=== PATIENT | male | born 1985 | race African-American/Black ===

== ENCOUNTER 2016-09-17 16:24 | Emergency (ER) ==
[2016-09-17 16:36] VITALS: BP 144/97; TEMP 96.8; BMI 41.1
[2016-09-17] MEDS ORDERED: BOOSTRIX IM ONE (16:38)
--- NOTE | 2016-09-17 17:01 | DI ---
EXAM: Right foot three views HISTORY: Soft tissue nail puncture. FINDINGS / IMPRESSION: Area of interest was marked on the cutaneous surface with a BB. No soft ti ssue radiopaque foreign body or gas collection identified. Bone and joint structures appear normal.
[2016-09-17] MEDS ORDERED: LIDOCAINE 1 % AMP 5 ML (SUTURES) SUBCUT STA (17:08)
--- NOTE | 2016-09-17 17:14 | ED.PDOC ---
General ED Provider: Dr. TARA FREY JR Chief Complaint: Puncture Wound Stated Complaint: building a toybox inside stepped on board with [place] nail; puncture plantar to third mtp Time Seen by Physician: 16:45 Mode of Arrival: Walk-In Information Source: Patient Exam Limitations: No limitations [facility] Nursing and Triage Documentation Reviewed and Agree: No Review of Systems - Review Of Systems Constitutional: Reports: No symptoms Eyes: Reports: No symptoms Ears, Nose, Mouth, Throat: Reports: No symptoms Respiratory: Reports: No symptoms Cardiac: Reports: No symptoms GI: Reports: No symptoms : Reports: No symptoms Musculoskeletal: Reports: No symptoms Skin: Reports: No symptoms All Other Systems: Other Past Medical History - Past Medical History Previously Healthy: Yes Endocrine: Reports: None Cardiovascular: Reports: None Respiratory: Reports: None Hematological: Reports: None Gastrointestinal: Reports: None Genitourinary: Reports: None Neuro/Psych: Reports: None Musculoskeletal: Reports: None Cancer: Reports: None - Surgical History General Surgical History: Reports: Unknown - Family History Family History: Reports: Unknown - Social History Smoking Status: Never smoker Hx Substance Use: No Alcohol Screening: None Physical Exam - Physical Exam Appearance: Well-appearing Pain Distress: Mild Neck: Supple Respiratory: Airway patent Skin: Warm, Dry, Normal color (note lesion) Procedures - Laceration/Wound Repair No standard instances Wound Description: Flap Wound Length (cm): .2 Wound Width: .3 Wound Depth: .5 Wound Explored: Clean Wound Prep: Hibiclens Anesthesia: Lidocaine Wound Debrided: Minimal Undermining: Minimal Wound Margins: Revised Suture Size and Type: none Critical Care Note - Critical Care Note Total Time (mins): 0 Course - Course Orders, Labs, Meds: Orders Category Date Time Status Diphth,Pertuss(Acell),Tet Vac [Boostrix] MEDS 09/17/16 16:38 Discontinued 0.5 ml IM .ONCE ONE Lidocaine HCl/Pf [Lidocaine 1 % Amp 5 ml (Sutures)] MEDS 09/17/16 17:08 Discontinued 5 ml SUBCUT ONCE STA FOOT, RIGHT 3 VIEWS Stat RADS 09/17/16 16:40 Completed Medications Discontinued Medications Generic Name Dose Route Start Last Admin Trade Name Freq PRN Reason Stop Dose Admin Diphtheria/Pertussis/Tetanus Vacc 0.5 ml 09/17/16 16:38 09/17/16 16:52 Boostrix IM 09/17/16 16:39 0.5 ml .ONCE ONE Administration Lidocaine HCl 5 ml 09/17/16 17:08 09/17/16 17:38 Lidocaine 1 % Amp 5 Ml (Sutures) SUBCUT 09/17/16 17:09 5 ml ONCE STA Administration Vital Signs: Temp Pulse Resp BP Pulse Ox 09/17/16 16:24 96.8 F L 89 18 144/97 H 96 Departure - Departure Time of Disposition: 17:45 Disposition: HOME SELF-CARE Discharge Problem: Wound, Puncture wound Penetrating foot wound Qualifiers: Encounter type: initial encounter Laterality: left Qualifier Code: (S91.332A) Puncture wound without foreign body, left foot, initial encounter Instructions: Puncture Wound (ED) Condition: Good Pt referred to PMD for follow-up: Yes Additional Instructions: any antibacterial ointment with bandage change bandage daily and if soaks through recheck if signs of infection (redness swelling drainage or pain) tetanus shot given wound debrided; should heal without problem tylenol fo rpain may also use ibuprofen Prescriptions: Bacitracin 1 applic TP 2-4XD #1 pkg Cephalexin [Keflex] 500 mg PO QID #20 capsule Allergies/Adverse Reactions: Allergies No Known Allergies Allergy (Verified 09/17/16 16:28) Home Medications: Ambulatory Orders Bacitracin 1 applic TP 2-4XD #1 pkg 09/17/16 Cephalexin [Keflex] 500 mg PO QID #20 capsule 09/17/16
== END 2016-09-17 17:56 | disposition home or self-care (01) ==
LOC: ED 16:24
DX: S91.331A Puncture wound without foreign body, right foot, initial encounter (principal); W45.0XXA Nail entering through skin, initial encounter
CPT/HCPCS: 90471; 99282

== ENCOUNTER 2016-11-01 12:43 | Outpatient (CLI) ==
[2016-11-01 13:36] LABS: BASOPHILS % (AUTO) 0.2 % (0.0-3.0); EOSINOPHILS # (AUTO) 0.1 K/ul (0.0-0.7); EOSINOPHILS % (AUTO) 1.6 % (0.0-7.0); HEMATOCRIT 44.2 % (42.0-52.0); HEMOGLOBIN 15.2 g/dl (14.0-18.0); IMMATURE GRANULOCYTE % (AUTO) 0.2 % (0.0-5.0); LYMPHOCYTES # (AUTO) 1.6 K/uL (0.60-3.4); LYMPHOCYTES % (AUTO) 26.1 (10.0-50.0); MEAN CORPUSCULAR HGB CONC 34.4 (31.8-35.4); MEAN CORPUSCULAR VOLUME 87.2 fl (80.0-94.0); MONOCYTES # (AUTO) 0.5 K/uL (0.4-2.0); MONOCYTES % (AUTO) 8.3 (0-10); NEUTROPHILS % (AUTO) 63.6; PLATELET COUNT 216 10^3/uL (140-440); RED BLOOD COUNT 5.07 10^6/ul (4.70-6.10); WHITE BLOOD COUNT 6.29 K/ul (4.2-10.2)
[2016-11-01 14:36] LABS: ALBUMIN/GLOBULIN RATIO 1.08; ANION GAP 13.1; BILIRUBIN,TOTAL 0.51 mg/dL (0.00-1.20); BUN/CREATININE RATIO 7.14; CALCIUM 9.3 mg/dL (8.2-10.2); CHOL/HDL RATIO 5.4 (4.5-6.4); CREATININE 0.98 mg/dL (0.60-1.10); POTASSIUM 4.1 mmol/L (3.5-5.1); TOTAL PROTEIN 7.7 g/dL (6.4-8.2)
== END 2016-11-01 12:44 | disposition home or self-care (01) ==
LOC: LAB 12:43
PROVIDERS: ATTEND Nurse Practitioner Family
DX: F32.9 Major depressive disorder, single episode, unspecified (principal); R53.83 Other fatigue; G47.33 Obstructive sleep apnea (adult) (pediatric); E66.9 Obesity, unspecified
CPT/HCPCS: 36415; 80053; 80061; 84439; 84443; 85025

== ENCOUNTER 2017-04-19 12:15 | Outpatient (CLI) ==
--- NOTE | 2017-04-19 13:30 | US ---
EXAM: Ultrasound scrotum and contents. HISTORY: Left testicular pain, palpable area. COMPARISON: None available. TECHNIQUE: Carrasco-scale and color Doppler images. FINDINGS: The right testicle measures 4.7 x 2.7 x 3.4 cm. There is homogeneous echogenicity with vascular flow. Right epididymis is unremarkable. There is a small amount of right scrotal fluid. The left testicle measures 5.1 x 2.4 x 3.2 cm. There is homogeneous echogenicity with vascular flow. Left epididymis is unremarkable. There is a small amount of left scrotal fluid. Limited images of the area of palpable concern demonstrate no sonographic abnormality. IMPRESSION: 1. No sonographic abnormality of the testes. 2. Small bilateral hydroceles.
== END 2017-04-19 12:16 | disposition home or self-care (01) ==
LOC: RAD 12:15
PROVIDERS: ATTEND Nurse Practitioner Family
DX: N50.812 Left testicular pain (principal)

== ENCOUNTER 2017-09-06 10:16 | Outpatient (CLI) ==
--- NOTE | 2017-09-06 14:40 | DI ---
Exam: Five x-rays of the lumbar spine. Comparison: 05/07/2016. Reason for exam: Chronic back pain. FINDINGS: Vertebral body heights are well maintained. No acute fracture or listhesis is seen within the lumbar spine. There is mild intervertebral body disc space height narrowing at L5-S1. No signi ficant degenerative disease is seen. Impression: No acute fracture or listhesis in the lumbar spine. Imaging findings do not appear significantly jen nged when compared to radiographs performed on 05/07/2016
== END 2017-09-06 10:17 | disposition home or self-care (01) ==
LOC: LAB 10:16
PROVIDERS: ATTEND Nurse Practitioner Family
DX: F32.9 Major depressive disorder, single episode, unspecified (principal); M54.9 Dorsalgia, unspecified; G89.29 Other chronic pain
CPT/HCPCS: 36415; 80053; 81001; 84439; 84443; 85025

== ENCOUNTER 2018-06-06 12:18 | Outpatient (CLI) ==
[2018-01-23 15:12] VITALS: BMI 41.1
--- NOTE | 2018-06-06 13:45 | DI ---
EXAM: Three views of the left ankle. History: Left ankle pain. Findings: No acute fracture or dislocation. Hardware at the ankle fusing the tibiotalar joint. The posterior calcaneal spur is protruding from the bone about 4 mm. There is subcutaneous edema seen a t the ankle. Degenerative changes of the midfoot with prominent dorsal osteophytes. Impression: No acute osseous abnormality. Other findings as detailed above.
== END 2018-06-06 12:19 | disposition home or self-care (01) ==
LOC: RAD 12:18
PROVIDERS: ATTEND Nurse Practitioner Family
DX: Z00.00 Encounter for general adult medical examination without abnormal findings (principal); M25.572 Pain in left ankle and joints of left foot; G89.29 Other chronic pain; Z98.890 Other specified postprocedural states
CPT/HCPCS: 36415; 80053; 80061; 85025

== ENCOUNTER 2018-06-24 17:35 | Emergency (ER) ==
[2018-06-24 17:43] VITALS: BP 121/76; TEMP 96.4; BMI 45.3
--- NOTE | 2018-06-24 18:32 | ED.PDOC ---
General ED Provider: Dr. GABRIEL MEJIA Chief Complaint: Respiratory Complaint Stated Complaint: flu like symp Time Seen by Physician: 17:40 Mode of Arrival: Walk-In Information Source: Patient Exam Limitations: No limitations Nursing and Triage Documentation Reviewed and Agree: Yes Does patient meet sepsis criteria?: No System Inflammatory Response Syndrome: Not Applicable Sepsis Protocol: For patient's 13 years and over: Temp is 96.8 and below OR 101 and greater Pulse >90 BPM Resp >20/minute Acutely Altered Mental Status Are patient's symptoms suggestive of a new infection, such as: -Pneumonia -Skin, Soft Tissue -Endocarditis -UTI -Bone, Joint Infection -Implantable Device -Acute Abdominal Infection -Wound Infection -Meningitis -Blood Stream Catheter Infection -Unknown EENT Complaint Exam - Throat Complaint/Exam Symptoms Are: Still present Timimg: Intermittent Initial Severity: Mild Current Severity: None Aggravating: Reports: None Alleviating: Reports: None Associated Signs and Symptoms: Reports: Chills, Cough, Nasal congestion. Denies : Fever, Dysphagia, Drooling, Foreign body sensation, Wheezing, Hoarseness, Sinus discomfort, Difficulty breathing, Lethargy, Irritability, Decreased activity, Vomiting, Diarrhea, Decreased hearing, Ear drainage Uvula Midline: Yes Radha-tonsillar Fluctuence: No Scarlatinaform Rash Present: No Stridor Present: No Sinus Tenderness Present: No Tonsillar Hypertrophy Present: No Tonsillar Exudate Present: No Radha-tonsillar Swelling Present: No Adenopathy Present: No Splenomegaly Present: No Differential Diagnoses: Influenza, Laryngitis, Pharyngitis Review of Systems - Review Of Systems Constitutional: Reports: Chills, Fever, Malaise, Loss of appetite Eyes: Reports: No symptoms Ears, Nose, Mouth, Throat: Reports: Throat pain Respiratory: Reports: Cough Cardiac: Reports: No symptoms GI: Reports: No symptoms : Reports: No symptoms Musculoskeletal: Reports: No symptoms Skin: Reports: No symptoms Neurological: Reports: No symptoms Endocrine: Reports: No symptoms Hematologic/Lymphatic: Reports: No symptoms All Other Systems: Reviewed and Negative Past Medical History - Past Medical History Previously Healthy: Yes Endocrine: Reports: None Cardiovascular: Reports: None Respiratory: Reports: None Hematological: Reports: None Gastrointestinal: Reports: None Genitourinary: Reports: None Neuro/Psych: Reports: None Musculoskeletal: Reports: None Cancer: Reports: None - Surgical History General Surgical History: Reports: Unknown - Family History Family History: Reports: Unknown - Social History Smoking Status: Never smoker Hx Substance Use: No Alcohol Screening: None Physical Exam - Physical Exam Appearance: Well-appearing, No pain distress, Well-nourished Eyes: MAGDALENA, EOMI, Conjunctiva clear ENT: Ears normal, Nose normal, Oropharynx normal Respiratory: Airway patent, Breath sounds clear, Breath sounds equal, Respirations nonlabored Cardiovascular: RRR, Pulses normal, No rub, No murmur GI/: Soft, Nontender, No masses, Bowel sounds normal, No Organomegaly Musculoskeletal: Normal strength, ROM intact, No edema, No calf tenderness Skin: Warm, Dry, Normal color Neurological: Sensation intact, Motor intact, Reflexes intact, Cranial nerves intact, Alert, Oriented Psychiatric: Affect appropriate, Mood appropriate Critical Care Note - Critical Care Note Total Time (mins): 0 Course - Course Orders, Labs, Meds: Lab Review 06/24/18 17:45 Influ A Molecular Assay Negative by naat Influ B Molecular Assay Negative by naat Orders Category Date Time Status FLU A/B MOLECULAR Stat LAB 06/24/18 17:45 Completed MOLECULAR GROUP A STREP Stat LAB 06/24/18 17:45 Completed Vital Signs: Temp Pulse Resp BP Pulse Ox 06/24/18 17:36 96.4 F L 104 H 20 121/76 95 Departure - Departure Time of Disposition: 18:31 Disposition: HOME SELF-CARE Discharge Problem: Viral syndrome Instructions: Viral Syndrome (ED) Condition: Good Pt referred to PMD for follow-up: Yes IPMP verified?: No Allergies/Adverse Reactions: Allergies No Known Allergies Allergy (Verified 06/24/18 17:42)
== END 2018-06-24 18:58 | disposition home or self-care (01) ==
LOC: ED 17:35
DX: B34.9 Viral infection, unspecified (principal)
CPT/HCPCS: 87502; 87651; 99283

== ENCOUNTER 2019-01-16 04:31 | Emergency (ER) ==
[2019-01-16 04:48] VITALS: BP 147/93; TEMP 97.3; BMI 47.7
--- NOTE | 2019-01-16 05:02 | ED.PDOC ---
General ED Provider: Dr. ALEX SKAGGS Chief Complaint: Finger Pain/Injury Stated Complaint: Painful right ring finger about 2 weeks - now swollen, painful with some clear drainage. No drainage now - was earlier. Time Seen by Physician: 04:58 Mode of Arrival: Walk-In Information Source: Patient Exam Limitations: No limitations Primary Care Provider: SAWYER HOWELL Nursing and Triage Documentation Reviewed and Agree: Yes Does patient meet sepsis criteria?: No System Inflammatory Response Syndrome: Not Applicable Sepsis Protocol: For patient's 13 years and over: Temp is 96.8 and below OR 101 and greater Pulse >90 BPM Resp >20/minute Acutely Altered Mental Status Are patient's symptoms suggestive of a new infection, such as: -Pneumonia -Skin, Soft Tissue -Endocarditis -UTI -Bone, Joint Infection -Implantable Device -Acute Abdominal Infection -Wound Infection -Meningitis -Blood Stream Catheter Infection -Unknown Review of Systems - Review Of Systems Constitutional: Reports: No symptoms Respiratory: Reports: No symptoms Skin: Reports: Other (Right ring finger swollen distal) All Other Systems: Reviewed and Negative Past Medical History - Past Medical History Previously Healthy: Yes Endocrine: Reports: None Cardiovascular: Reports: None Respiratory: Reports: None Hematological: Reports: None Gastrointestinal: Reports: None Genitourinary: Reports: None Neuro/Psych: Reports: None Musculoskeletal: Reports: None Cancer: Reports: None - Surgical History General Surgical History: Reports: Unknown - Family History Family History: Reports: Unknown - Social History Smoking Status: Never smoker Hx Substance Use: No Alcohol Screening: Occasionally - Immunizations Tetanus Shot up to Date: Yes Physical Exam - Physical Exam Appearance: Well-appearing Ill-appearing: None Pain Distress: None Neck: Supple Respiratory: Airway patent Cardiovascular: RRR, Pulses normal Musculoskeletal: Normal strength, ROM intact, No edema (except distal right 4th digit) Skin: Warm, Dry, Normal color (except distal right ring finger - mild erythema) Neurological: Sensation intact, Motor intact Critical Care Note - Critical Care Note Total Time (mins): 7 Course - Course Orders, Labs, Meds: Orders Category Date Time Status Cephalexin [Keflex] MEDS 01/16/19 05:06 Discontinued 500 mg PO ONCE STA Medications Discontinued Medications Generic Name Dose Route Start Last Admin Trade Name Freq PRN Reason Stop Dose Admin Cephalexin 500 mg 01/16/19 05:06 01/16/19 05:20 Keflex PO 01/16/19 05:07 500 mg ONCE STA Administration Vital Signs: Temp Pulse Resp BP Pulse Ox 01/16/19 04:32 97.3 F L 79 18 147/93 H 97 Departure - Departure Time of Disposition: 05:21 Disposition: HOME SELF-CARE Discharge Problem: Cellulitis Qualifiers: Site of cellulitis: extremity Site of cellulitis of extremity: finger Laterality: right Qualified Code(s): L03.011 - Cellulitis of right finger Instructions: Cellulitis (ED) Condition: Good Pt referred to PMD for follow-up: Yes (follow up as needed) IPMP verified?: No (N/A) Additional Instructions: Take antibiotics as prescribed; follow up with primary care next week if not better. Prescriptions: Cephalexin [Keflex] 500 mg PO Q8HR #30 capsule Allergies/Adverse Reactions: Allergies No Known Drug Allergies Adverse Reaction (Verified 01/16/19 04:42) Home Medications: Ambulatory Orders Cephalexin [Keflex] 500 mg PO Q8HR #30 capsule 01/16/19
[2019-01-16] MEDS ORDERED: KEFLEX PO STA (05:06)
== END 2019-01-16 05:29 | disposition home or self-care (01) ==
LOC: ED 04:31
DX: L03.011 Cellulitis of right finger (principal)
CPT/HCPCS: 99282